=== PATIENT | female | born 2000 | race Caucasian/White ===

== ENCOUNTER 2018-02-07 22:20 | Emergency (ER) | payer BC, SELFPAY ==
[2018-02-07 22:47] VITALS: BP 139/89; PULSE 93; RESP 16; TEMP 37.3; O2SAT 99; BMI 35.5
[2018-02-07 23:05] LABS: RBC Urine None Seen (0-5/HPF)
[2018-02-07 23:10] LABS: Pregnancy Test Urine Negative (Negative)
[2018-02-07 23:12] LABS: Bilirubin Urine UA 3+ (NEGATIVE); Glucose Urine UA TRACE g/dL (Normal); Ketones Urine UA 3+ (NEGATIVE); Leukocyte Esterase Urine UA NEGATIVE (NEGATIVE); Nitrite Urine UA Negative (Negative); Occult Blood Urine UA NEGATIVE (Negative); Protein Urine UA 2+ (Negative); Specific Gravity Urine UA 1.025 (1.000-1.035); pH Urine UA 6.5 (4.5-8.0)
[2018-02-07 23:18] LABS: Appearance Urine UA SL CLOUDY; Color Urine UA Amber; WBC Urine 5-10/HPF (0-5/HPF)
[2018-02-07 23:19] LABS: Amorphous Sediment Urine 1+; Squamous Epithelial Cell Urine 5-10 /HPF
[2018-02-07 23:20] LABS: Bacteria Urine Moderate (10-30); Culture Indicated Urine Specimen Cultured; Mucus Urine 1+ (Negative)
[2018-02-07 23:22] LABS: Ictotest Urine Positive (Negative)
--- NOTE | 2018-02-08 00:28 | PC.NURSE ---
Pt roomed to [facility] for bloodwork and IV start. IV start x 2 unsuccessful. Lab called to draw. Noticed jaundice of pt's eyes. Pt reports epigastric pain after eating. Mother with gallbladder issues and removal
[2018-02-08 00:55] LABS: Hematocrit 40.6 % (36-46); Hemoglobin 14.2 g/dL (12.0-16.0); Mean Corpuscular HGB Conc 34.9 % (30-36); Mean Corpuscular Hemoglobin 31.6 PG (26-34); Mean Corpuscular Volume 90.7 fL (80-100); Platelet Count 266 X10^3/uL (150-400); Red Blood Cell Count 4.48 X10^6/uL (4.0-5.2); Red Cell Distribution Width 12.4 % (11.6-14.8); White Blood Cell Count 11.4 X10^3/uL (4.5-11.0)
[2018-02-08 01:02] LABS: Alanine Aminotransferase 555 IU/L (9-52); Albumin 4.7 g/dL (3.5-5.0); Albumin Globulin Ratio 1.4 (1.0-2.8); Alkaline Phosphatase 110 U/L (38-126); Amylase 89 U/L (30-110); Aspartate Aminotransferase 214 IU/L (14-36); BUN Creatinine Ratio 11.4 (6-22); Bilirubin Total 7.3 mg/dL (0.2-1.3); Blood Urea Nitrogen 8 mg/dL (7-17); Calcium 9.6 mg/dL (8.4-10.2); Carbon Dioxide 23 mmol/L (22-32); Chloride 103 mmol/L (98-107); Estimated Glomerular Filt Rate > 60.0 mL/min (>60); Globulin 3.3 g/dL (1.7-4.1); Glucose 99 mg/dL (70-100); HEMOLYSIS < 15 (0-50); Lipase 118 U/L (23-300); Potassium 3.6 mmol/L (3.4-5.1); Sodium 141 mmol/L (137-145)
[2018-02-08 01:14] LABS: Neutrophils Absolute Manual 8664 /uL (3000-5900); RBC Morphology Normal Morphology; Total Cells Counted 100
--- NOTE | 2018-02-08 01:21 | DI.US.S_ITS ---
PROCEDURE: US ABDOMEN COMPLETE INDICATIONS: ruq TECHNIQUE: Real-time scanning was performed of the abdominal and retroperitoneal organs, with image documentation. COMPARISON: None. FINDINGS: Liver: Liver is normal in size and homogeneous in echotexture. Gallbladder: Approximately 1.1 cm in diameter stones noted in the fundus of the gallbladder. No pericholecystic fluid. No gallbladder wall thickening. No sonographic Melendez sign. Biliary ducts: Intrahepatic bile ducts are non-dilated. Extrahepatic bile duct caliber measures 6.5 mm. Normal is 6-7 mm or less in diameter, or 10 mm or less post-cholecystectomy. Pancreas: Not visualized due to bowel gas and cannot be evaluated. Spleen: Spleen is normal in size and homogeneous in echotexture. Kidneys: Kidneys are normal in size and echotexture. Right kidney measures 10.6 cm long; left kidney measures 10.9 cm long. No hydronephrosis or nephrolithiasis. No solid masses. Aorta: Visualized aorta is normal in caliber at less than 3 cm. proximal segment of the abdominal aorta is obscured by bowel gas and cannot be evaluated. Iliacs: Proximal common iliac arteries are normal in caliber at less than 2.5 cm. IVC: Intrahepatic inferior vena cava is patent. Miscellaneous: No free abdominal fluid. IMPRESSION: 1. Cholelithiasis without sonographic evidence of cholecystitis. 2. Common bile duct at the upper limits of normal in diameter. Recommend correlation with laboratory data to exclude biliary obstruction. Dictated by: Mary Drummond MD, PhD on 02/08/2018 at 12:08 Approved by: Mary Drummond MD, PhD on 02/08/2018 at 12:10
--- NOTE | 2018-02-08 02:17 | ED.ABDPAIN ---
HPI - Abdominal Pain General Chief Complaint: Abdominal Pain Stated Complaint: UPPER ABDOMINAL PAIN AND VOMITING X 3 DAYS Time Seen by Provider: 02/08/18 00:43 Source: patient Mode of arrival: ambulatory History of Present Illness HPI narrative: patient is a 17-year-old female who presents with epigastric pain nausea and vomiting for the last 3 days. She has had low-grade fever 99-100. She says she tries to eat, a couple hours later she vomits. Her mom has noticed that her eyes become yellow and that her urine is extremely dark. she is currently resting comfortably and says that her pain is much improved. She says tonight her pain was extremely bad. She denies any diarrhea no lower abdominal pain. her pain is non radiating. Onset (ago): day(s) (3) Pain Consistency: now resolved Location: epigastric Radiation: none Migration to: no migration Relieving factors: nothing Related Data Home Medications Medication Instructions Recorded Confirmed No Known Home Medications 02/08/18 02/08/18 Review of Systems Review of Systems All systems reviewed & are unremarkable except as noted in HPI and below Constitutional Reports fever(s) ( Low-grade), Denies frequent falls and Reports poor appetite Eyes Reports as per HPI ENT Ears, Nose, Mouth, and Throat: Denies change in voice, Denies dizziness, Denies neck pain and Denies sore throat Cardiovascular Denies chest pain, Denies irregular heart rhythm, Denies lightheadedness, Denies palpitations, Denies dyspnea, Denies dyspnea on exertion and Denies orthopnea Respiratory Denies cough, Denies dyspnea, Denies dyspnea on exertion and Denies wheezing Gastrointestinal Gastrointestinal: Reports as per HPI, Reports abdominal pain ( epigastric) and Reports vomiting Musculoskeletal Denies neck pain and Denies numbness Integumentary/Breasts Denies pruritus, Denies erythema, Denies rash and Denies wounds Neurologic Denies behavioral changes, Denies confusion, Denies dizziness, Denies frequent falls and Denies numbness Psychiatric Denies behavioral changes and Denies confusion Endocrine Denies palpitations Allergic/Immunologic Denies wheezing FOR[facility]LY [facility], [facility] Social History Smoking Status: Never smoker Exam Initial Vital Signs Initial Vital Signs: Vital Signs Temperature 99.2 F 02/07/18 22:47 Pulse Rate 93 H 02/07/18 22:47 Respiratory Rate 16 02/07/18 22:47 Blood Pressure 139/89 H 02/07/18 22:47 Pulse Oximetry 99 02/07/18 22:47 Const General: cooperative, healthy appearing and comfortable Nutritional Appearance: average body habitus HENMT Head: normal to inspection Eyes Conjunctivae: conjunctival abnormality bilaterally conjunctival icterus Neck Neck: normal visual inspection, full ROM and no meningeal signs Chest Chest: normal inspection of the chest Resp Effort & Inspection: normal respiratory effort Auscultation: clear to auscultation bilaterally, no rales, no rhonchi and no wheezes Cardio Rhythm: regular rhythm Heart Sounds: S1 normal, S2 normal and no murmurs GI Palpation: soft, No guarding and tender ( minimal tenderness in epigastric area and no Melendez sign) General: No CVA tenderness Skin General: jaundice Lesions: no lesions Neuro General: alert, awake and oriented x3 Cranial Nerves: CN's II-XI intact bilaterally Extrem General: normal to inspection, full ROM and capillary refill normal Procedures Misc Procedure Name of Procedure: Technique/Description of procedure performed: Course Orders Ordered: ED Orders 02/07/18 23:03 Ictotest Urine Stat Test Urine Stat Urinalysis and Microscopic Stat Urine Culture Stat 02/08/18 00:36 Amylase Stat Complete Blood Count MAN DIFF Stat Comprehensive Metabolic Panel Stat Lipase Stat 02/08/18 01:21 US abdomen complete Stat Discontinued Medications Ketorolac Tromethamine (Toradol) 30 mg IV NOW ONE Stop: 02/08/18 01:22 Last Admin: 02/08/18 04:08 Dose: Ondansetron HCl (Zofran) 4 mg IV NOW ONE Stop: 02/08/18 01:22 Last Admin: 02/08/18 04:09 Dose: Consultations Consultation #1: Dr. Riley, surgery has been updated on patient's symptoms and test results. Concerned that with such an elevated bilirubin She would likely need more than an MRCP and no capabilities of doing an ERCP here. Recommended transferring to and mother facility. Time: 01:45 Consultation #2: Dr Funk, Hospitalist at [facility] has been updated on symptoms and test results. She recommend that we talk to GI physician before she accepts 2:45 accepts Time: 02:15 Consultation #3: Dr Chapin, GI updated on symptoms and test results he does do ERCP patient does not require an emergent ERCP but he will happily see the patient and recommended admitting to the hospitalist service. Time: 02:30 Vital Signs - 8 hr 02/07/18 22:47 02/08/18 04:04 Temperature 99.2 F 97.0 F L Pulse Rate 93 H 88 Respiratory Rate 16 18 Blood Pressure 139/89 H Blood Pressure [Left Arm] 120/67 Pulse Oximetry 99 99 MDM - Abdominal Pain Medical Records Attestation: I reviewed the patient's medical records. Lab Data Attestation: I reviewed the patient's lab results. Result diagrams: 02/08/18 00:36 02/08/18 00:36 Lab Results 02/07/18 02/07/18 02/07/18 Range/Units 23:03 23:03 23:03 WBC (4.5-11.0) X10^3/uL RBC (4.0-5.2) X10^6/uL Hgb (12.0-16.0) g/dL Hct (36-46) % MCV (80-100) fL MCH (26-34) PG MCHC (30-36) % RDW (11.6-14.8) % Plt Count (150-400) X10^3/uL Total Counted Seg Neutrophils % (37-67) % Lymphocytes % (Manual) (25-45) % Atypical Lymphs % ( - 0) % Monocytes % (Manual) (2-11) % Eosinophils % (Manual) (2-4) % Neutrophils # (Manual) (2448-3668) /uL RBC Morphology Sodium (137-145) mmol/L Potassium (3.4-5.1) mmol/L Chloride (98-107) mmol/L Carbon Dioxide (22-32) mmol/L BUN (7-17) mg/dL Creatinine (0.52-1.04) mg/dL Estimated GFR (>60) mL/min BUN/Creatinine Ratio (6-22) Glucose (70-100) mg/dL Calcium (8.4-10.2) mg/dL Total Bilirubin (0.2-1.3) mg/dL AST (14-36) IU/L ALT (9-52) IU/L Alkaline Phosphatase (38-126) U/L Total Protein (6.3-8.2) g/dL Albumin (3.5-5.0) g/dL Globulin (1.7-4.1) g/dL Albumin/Globulin Ratio (1.0-2.8) Amylase (30-110) U/L Lipase (23-300) U/L Urine Color [place] Urine Appearance Sl cloudy Urine pH 6.5 (4.5-8.0) Ur Specific [place] 1.025 (1.000-1.035) Urine Protein 2+ H (Negative) Urine Glucose (UA) Trace (Normal) g/dL Urine Ketones 3+ H (NEGATIVE) Urine Occult Blood Negative (Negative) Urine Nitrate Negative (Negative) Urine Bilirubin 3+ H (NEGATIVE) Urine Ictotest Positive H (Negative) Urine Urobilinogen 1.0 (0.2) E.U./dL Ur Leukocyte Esterase Negative (NEGATIVE) Urine RBC None seen (0-5/HPF) Urine WBC 5-10/hpf H (0-5/HPF) Ur Squamous Epith Cells 5-10 /hpf H Amorphous Sediment 1+ Urine Bacteria Moderate (10-30) H (None) Urine Mucus 1+ H (Negative) Ur Culture Indicated? Specimen cultured Micro UA Comment Not Reportable Urine Test Negative (Negative) 02/08/18 02/08/18 Range/Units 00:36 00:36 WBC 11.4 H (4.5-11.0) X10^3/uL RBC 4.48 (4.0-5.2) X10^6/uL Hgb 14.2 (12.0-16.0) g/dL Hct 40.6 (36-46) % MCV 90.7 (80-100) fL MCH 31.6 (26-34) PG MCHC 34.9 (30-36) % RDW 12.4 (11.6-14.8) % Plt Count 266 (150-400) X10^3/uL Total Counted 100 Seg Neutrophils % 76.0 H (37-67) % Lymphocytes % (Manual) 18.0 L (25-45) % Atypical Lymphs % 2.0 H ( - 0) % Monocytes % (Manual) 3.0 (2-11) % Eosinophils % (Manual) 1.0 L (2-4) % Neutrophils # (Manual) 8664 H (7988-0322) /uL RBC Morphology Normal morphology Sodium 141 (137-145) mmol/L Potassium 3.6 (3.4-5.1) mmol/L Chloride 103 (98-107) mmol/L Carbon Dioxide 23 (22-32) mmol/L BUN 8 (7-17) mg/dL Creatinine 0.70 (0.52-1.04) mg/dL Estimated GFR > 60.0 (>60) mL/min BUN/Creatinine Ratio 11.4 (6-22) Glucose 99 (70-100) mg/dL Calcium 9.6 (8.4-10.2) mg/dL Total Bilirubin 7.3 H (0.2-1.3) mg/dL AST 214 H (14-36) IU/L ALT 555 H (9-52) IU/L Alkaline Phosphatase 110 (38-126) U/L Total Protein 8.0 (6.3-8.2) g/dL Albumin 4.7 (3.5-5.0) g/dL Globulin 3.3 (1.7-4.1) g/dL Albumin/Globulin Ratio 1.4 (1.0-2.8) Amylase 89 (30-110) U/L Lipase 118 (23-300) U/L Urine Color Urine Appearance Urine pH (4.5-8.0) Ur Specific [place] (1.000-1.035) Urine Protein (Negative) Urine Glucose (UA) (Normal) g/dL Urine Ketones (NEGATIVE) Urine Occult Blood (Negative) Urine Nitrate (Negative) Urine Bilirubin (NEGATIVE) Urine Ictotest (Negative) Urine Urobilinogen (0.2) E.U./dL Ur Leukocyte Esterase (NEGATIVE) Urine RBC (0-5/HPF) Urine WBC (0-5/HPF) Ur Squamous Epith Cells Amorphous Sediment Urine Bacteria (None) Urine Mucus (Negative) Ur Culture Indicated? Micro UA Comment Urine Test (Negative) Imaging Data US - abdomen: Radiologist's impression: shift supervisor film processing report: Cholelithiasis. Mildly prominent common bile duct. Possibility of occult coli still cholelithiasis or recent stone passage is raise. Follow-up recommended. Hepatomegaly with fatty liver infiltration. Patchy splenic echotexture. Question of interval treating process such as malignancy versus sonographic technique. Follow-up recommended. MDM Narrative Medical decision making narrative: The patient does not appear toxic she is no longer having pain she does not have right upper quadrant pain, I do not believe this to be ascending cholangitis. She does have obvious jaundice and elevated bilirubin. Surgery here feels that due to her state difficultly elevated bilirubin she will likely need an ERCP. Patient will be transferred. Discharge Plan Departure Patient Disposition: [facility] Clinical Impression: Cholelithiasis Activity Restrictions/Additional Instructions: Go To [facility]- Go through the ED doors, you have a room 3013 and they are expecting you Keep IV in Prescriptions: No Action No Known Home Medications RF: 0
[2018-02-08] MEDS: SODIUM CHLORIDE 0.9% 1,000 ML 1000 ML IV (03:00)
[2018-02-08 04:04] VITALS: BP 120/67; PULSE 88; RESP 18; TEMP 36.1; O2SAT 99
== END 2018-02-08 04:23 | disposition short-term general hospital (02) ==
PROVIDERS: Emergency Provider Emergency Medicine
DX: K80.20 Calculus of gallbladder without cholecystitis without obstruction (principal)
CPT/HCPCS: 36415; 76700; 80053; 81001; 81025; 82150; 83690; 85025; 87086; 96360; 96361; 99283; 99284